=== PATIENT | female | born 2000 | race Caucasian/White ===

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

== ENCOUNTER 2020-05-07 21:49 | Emergency (ER) | payer OTHER ==
[~2020-05-07] VITALS: Ht 165.1 cm; Wt 90.7 kg
[~2020-05-07 21:49] MED LIST changes: +BACTRIM DS TAB1 EACH PO; +MUPIROCIN22 GM TOP
[2020-05-07 22:47] VITALS: BP 151/65
== END 2020-05-07 22:47 | disposition home or self-care (01) ==
LOC: M.ERS 21:49
DX: J02.9 Acute pharyngitis, unspecified (principal)

== ENCOUNTER 2021-07-04 20:27 | Emergency (ER) | payer OTHER ==
[~2021-07-04] VITALS: Ht 162.6 cm; Wt 72.6 kg
[2021-07-04] MEDS ORDERED: MEDROLDOSEPACK PO ×2 (20:46→21:33)
[2021-07-04] MEDS ORDERED: FLEXERIL PO ×2 (20:46→21:33)
[2021-07-04 21:02] VITALS: BP 116/80
== END 2021-07-04 21:03 | disposition home or self-care (01) ==
LOC: M.ERS 20:27
DX: M70.42 Prepatellar bursitis, left knee (principal); Y93.89 Activity, other specified

== ENCOUNTER 2021-08-20 12:15 | Emergency (ER) | payer MEDICAID ==
[~2021-08-20] VITALS: Ht 167.6 cm; Wt 98.4 kg
[~2021-08-20 12:15] MED LIST changes: +MEDROLDOSEPACK PO
[2021-08-20] MEDS ORDERED: IBUPROFEN 800800 M1 PO (14:16)
[2021-08-20 14:27] VITALS: BP 131/70
== END 2021-08-20 14:28 | disposition home or self-care (01) ==
LOC: M.ERS 12:15
DX: S90.32XA Contusion of left foot, initial encounter (principal); W22.8XXA Striking against or struck by other objects, initial encounter; Y93.89 Activity, other specified; Y92.89 Other specified places as the place of occurrence of the external cause; Y99.8 Other external cause status